=== PATIENT | female | born 1995 | race Caucasian/White ===

== ENCOUNTER 2016-11-01 22:49 | Emergency (ER) | payer OTHER ==
[2016-11-01 23:02] VITALS: PULSE 72; TEMP 98.6
--- NOTE | 2016-11-02 00:25 | XR ---
EXAMINATION TYPE: XR chest 2V DATE OF EXAM: 11/02/2016 12:19 AM COMPARISON: NONE HISTORY: Chest pain TECHNIQUE: Frontal and lateral views of the chest are obtained. FINDINGS: Heart and mediastinum are normal. Lungs are clear. Diaphragm is normal. Bony thorax is int act. IMPRESSION: Normal chest
--- NOTE | 2016-11-02 00:51 | ED ---
Fall HPI - General Chief Complaint: Fall Stated Complaint: Fall down 6 stairs Time Seen by Provider: 11/01/16 23:45 Source: patient, RN notes reviewed Mode of arrival: ambulatory - History of Present Illness Initial Comments: Patient is a 21 year old female with chief complaint of falling on her right shoulder and chest while going down the stair. She reports that she fell and hit her side of her face as well. She landed on concrete. Patient does not have any lacerations or abrasions. She states that the majority of her pain is over anterior chest wall and reproducible with pressure. She denies any extremity injury. She denies shortness of breath, or chest pain. - Related Data Home Medications Medication Instructions Recorded Confirmed Montelukast [Singulair] 10 mg PO DAILY 11/01/16 11/01/16 Previous Rx's Medication Instructions Recorded Ibuprofen [Motrin] 800 mg PO Q6HR PRN #20 tab 11/02/16 Allergies Allergy/AdvReac Type Severity Reaction Status Date / Time No Known Allergies Allergy Verified 11/01/16 23:21 Review of Systems ROS Statement: Those systems with pertinent positive or pertinent negative responses have been documented in the HPI. ROS Other: All systems not noted in ROS Statement are negative. Past Medical History Past Medical History: No Reported History History of Any Multi-Drug Resistant Organisms: None Reported Past Surgical History: Tonsillectomy Past Psychological History: No Psychological Hx Reported Smoking Status: Never smoker Past Alcohol Use History: None Reported Past Drug Use History: None Reported General Exam - General Exam Comments Initial Comments: Well appearing 21 year old female, no acute distress. Limitations: no limitations General appearance: alert, in no apparent distress Head exam: Present: atraumatic, normocephalic, normal inspection Eye exam: Present: normal appearance, PERRL, EOMI. Absent: scleral icterus, conjunctival injection, periorbital swelling ENT exam: Present: normal exam, mucous membranes moist Neck exam: Present: normal inspection. Absent: tenderness, meningismus, lymphadenopathy Respiratory exam: Present: normal lung sounds bilaterally, chest wall tenderness (right sided chest all tenderness). Absent: respiratory distress, wheezes, rales, rhonchi, stridor Cardiovascular Exam: Present: regular rate, normal rhythm, normal heart sounds. Absent: systolic murmur, diastolic murmur, rubs, gallop, clicks GI/Abdominal exam: Present: soft, normal bowel sounds. Absent: distended, tenderness, guarding, rebound, rigid Extremities exam: Present: normal inspection, full ROM, normal capillary refill. Absent: tenderness, pedal edema, joint swelling, calf tenderness Back exam: Present: normal inspection Neurological exam: Present: alert, oriented X3, CN II-XII intact Psychiatric exam: Present: normal affect, normal mood Skin exam: Present: warm, dry, intact, normal color. Absent: rash Course Vital Signs 11/01/16 11/02/16 11/02/16 22:56 01:01 01:12 Temperature 98.6 F Pulse Rate 72 72 Respiratory 18 16 Rate Blood Pressure 144/72 138/72 O2 Sat by Pulse 98 96 Oximetry Medical Decision Making - Medical Decision Making Patient is a 21 year old whom fell down 4-6 stairs and landed on her chest. She denies any chest pain and shorntess of breath, she states that her chest wall is tender. CXR is reviewed to be negative. Patient given Rx for motrin and advised to apply ice and take frequent deep breaths by splinting as patient has a rib contusion. Return paratmeters discussed. - Radiology Data Radiology results: report reviewed CXR is negatve for any acute process. Disposition Clinical Impression: Fall, Chest wall contusion Disposition: HOME SELF-CARE Condition: Good Instructions: Rib Contusion (ED) Additional Instructions: Patient started to rest, apply ice over the chest wall and take Motrin for pain. Return to the EC if any alarming signs or symptoms occur. Follow-up with a primary care provider. Prescriptions: Ibuprofen [Motrin] 800 mg PO Q6HR PRN #20 tab PRN Reason: Pain Referrals: None,Stated [Primary Care Provider] - 1-2 days Ladi Gibbs MD [REFERRING] - 1-2 days Time of Disposition: 00:50
[2016-11-02 01:13] VITALS: BP 138/72; RESP 16
== END 2016-11-02 01:13 | disposition home or self-care (01) ==
LOC: EC 22:49
DX: S20.219A Contusion of unspecified front wall of thorax, initial encounter (principal); M25.511 Pain in right shoulder; Z79.899 Other long term (current) drug therapy; W10.9XXA Fall (on) (from) unspecified stairs and steps, initial encounter
CPT/HCPCS: 71020; 99283